=== PATIENT | male | born 1960 | race Caucasian/White ===

== ENCOUNTER 2017-10-09 11:22 | Inpatient (IN) | payer SELFPAY ==
[2017-10-09] MEDS ORDERED: Furosemide 40 MG/4 ML VIAL ONE (12:25)
[2017-10-09] MEDS ORDERED: Nitroglycerin 2% Ointment 1 INCH/1 GM Packet ONE (12:25)
[2017-10-09 13:11] LABS: CKMB 2.2 ng/mL (0-6.6); Troponin I 0.022 ng/mL (< 0.028)
--- NOTE | 2017-10-09 13:44 | RAD ---
SINGLE VIEW OF THE CHEST: History: CHF, shortness of breath. FINDINGS: Single view of the chest shows enlarged but stable cardiomediastinal silhouette. There is a small lef t pleural effusion. There is no evidence of consolidation or mass. Degenerative changes are seen in t he spine. IMPRESSION: Small left pleural effusion. POS: [facility]
[2017-10-09 16:08] LABS: Troponin I 0.034 ng/mL (< 0.028)
--- NOTE | 2017-10-09 17:34 | HP ---
PRIMARY CARE PHYSICIAN: None. The patient just moved here from [facility] about a month ago. REFERRING PHYSICIAN: In the Emergency Department is Dr. Mcneal. CHIEF COMPLAINT: SOB. HISTORY OF PRESENT ILLNESS: Mr. Calvin is a pleasant 57-year-old white male with history of diabetes type 1.5, probable hypertension and hyperlipidemia who around 2:00 this morning, became acutely short of breath and actually woke him up. He noted he has had increased shortness of breath when lying flat over the last day or two. Denies any chest pain, although he does describe a vague heaviness over the center of his chest. He presented to an outside Emergency Department at the [place] [facility] in [place]. Labs were done that showed a BNP of 1700 and no known history of CHF and subsequently transferred for further evaluation. He denies any fevers or chills. He has had some chronic cough, but nonproductive. He has had orthopnea, PND, but no lower extremity edema. He has had no diaphoresis, no palpitations. His bowel habits have been normal. No nausea or vomiting. On transfer here, he has been satting 97% on 2 liters. His vitals have been stable. We were called for further workup. No other current complaints. PAST MEDICAL HISTORY: 1. Diabetes mellitus type 1, diagnosed at age 44. He is insulin-dependent. 2. Per records in the ER, hypertension and hyperlipidemia, but the patient denies these. PAST SURGICAL HISTORY: 1. Right ankle incision and drainage for infection remotely. 2. Cholecystectomy remotely. 3. Tonsillectomy as a child. 4. Bilateral carpal tunnel release. 5. Right elbow with ulnar nerve transposition. 6. Left shoulder bone spur removal. HOME MEDICATIONS: 1. Humalog 6 units subcu t.i.d. with meals. 2. Lantus 20 units subcu at bedtime. ALLERGIES: NKDA. FAMILY HISTORY: Coronary artery disease. Both his parents had heart problems starting in their mid to late 30s. SOCIAL HISTORY: Significant for one-half plus pack per day of cigarettes for the last 37 years. He has smoked from the age of 12 on, but stopped for 8 years more recently after he was diagnosed with diabetes and eventually restarted. Denies any alcohol regularly. No IV drug use. 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 REVIEW OF SYSTEMS: Ten-point review of systems was performed, negative for all other systems except as stated as per HPI. PHYSICAL EXAMINATION: VITAL SIGNS: Temperature 98.5, pulse 86, blood pressure 159/88, respiratory 20 and O2 sat 97% on 2 liters. GENERAL: He is awake. He is alert. He is oriented x3. He is a well-developed , well-nourished white male, appears to be in no acute distress. HEENT: Normocephalic and atraumatic. Pupils are equal, round and reactive to light bilaterally. Mucous membranes are moist. He has no visible lesion, no thrush. NECK: Supple. There is no lymphadenopathy, no JVD, no thyromegaly. He has no carotid upstrokes. There are no bruits. He has good range of motion. LUNGS: Clear to auscultation anteriorly, posteriorly has some faint bibasilar crackles that do not clear with deep inspiration. He has a symmetrical chest excursion with good air movement. There are no wheezes, rales or rhonchi. CARDIOVASCULAR: Normal S1 and S2. No S3 or S4. There are no murmurs. He has PMI that is normal size and nondisplaced. ABDOMEN: Soft. It is nontender and nondistended. He has no hepatosplenomegaly. He has got no rebound, rigidity or guarding. There is normoactive bowel sounds present in all 4 quadrants. EXTREMITIES: No cyanosis, no clubbing, no edema. His extremities are cool. He has got 1+ dorsalis pedis and posterior tibial pulses bilaterally. Capillary refill is around 3 seconds. SKIN: Warm, moist and well perfused. He has no other rashes or lesions. MUSCULOSKELETAL: Normal to inspection. Previous surgical incisions are well healed. He has no joint inflammation. No palpable effusions. NEUROLOGIC: Cranial nerves II-XII are grossly intact. He has a normal speech pattern. He has 5/5 strength in all 4 of his extremities. There is no focal or neurologic deficits. LABORATORY AND IMAGING DATA: At the outside ER, sodium 142, potassium 4.0, chloride 114, bicarbonate low at 17, BUN 16, creatinine 1.00 and a glucose of 228. The calcium is 9.0. Liver functions are normal. Total bilirubin is 1.3. CBC showed a white count of 8.6, hemoglobin 14.0, hematocrit of 42.4, and platelet count is 230,000. There is normal differential to the white blood cell count. VBG showed a pH of 7.29, pCO2 of 42.6, pO2 of 48.7 and bicarb of 20. CK-MB was normal at 2.3, troponin I was normal at 0.022 and BNP was elevated at 1752.4. Her chest x-ray showed a volume overload and probable CHF. ASSESSMENT AND PLAN: 1. New onset congestive heart failure, unknown type. We will get a 2D echocardiogram to determine whether this is systolic or diastolic. I do not suspect valvular. In the meantime, we will get IV Lasix on board, continue the nitro paste, get serial cardiac biomarkers and a fasting lipid profile in the morning. 2. Diabetes mellitus type 1.5: We will get a morning hemoglobin A1c. He has normal sugars that are usually around 100. We will continue his current regimen while he is eating and add in a sliding scale Humalog low dose. 3. Hypertension: Blood pressure 159/88. May have an underlying hypertension, we will watch him overnight. He will be on nitro paste and beta-taylor in the meantime. 4. We will check a fasting lipid profile. 5. Gastroesophageal reflux disease: The patient will be on Prevacid b.i.d. 6. Deep venous thrombosis prophylaxis. We will start him on Lovenox tonight. BILL
[2017-10-09] MEDS ORDERED: HYDROcodone/Acetaminophen 5/325 mg Tablet PO PRN ×3 (18:05→19:15)
[2017-10-09] MEDS ORDERED: Ondansetron ODT 4 MG TAB SL PRN (18:05)
[2017-10-09] MEDS ORDERED: Ondansetron HCl/PF 4 MG/2 ML Vial IVP PRN (18:05)
[2017-10-09] MEDS ORDERED: Acetaminophen 325 MG TAB PO PRN (18:05)
[2017-10-09 18:59] LABS: Troponin I 0.031 ng/mL (< 0.028)
[2017-10-09] MEDS ORDERED: Dextrose 50% Abboject 50 ML SYRINGE SLOW IVP PRN (19:15)
[2017-10-09] MEDS ORDERED: HumaLOG 300 UNITS/3 ML VIAL SC PRN (19:15)
[2017-10-09] MEDS ORDERED: Dextrose 5% in Water 1,000 ML IV PRN (19:15)
[2017-10-09] MEDS ORDERED: Enoxaparin Sodium 40 MG/0.4 ML SYRINGE SC SCH (19:15)
[2017-10-09] MEDS ORDERED: HumaLOG 300 UNITS/3 ML VIAL SC SCH (19:30)
[2017-10-09 19:46] LABS: CKMB 2.2 ng/mL (0-6.6)
[2017-10-09] MEDS ORDERED: Furosemide 40 MG/4 ML VIAL SLOW IVP SCH (20:00)
[2017-10-09] MEDS ORDERED: Nitroglycerin 2% Ointment 1 INCH/1 GM Packet TOP SCH (21:00)
[2017-10-09] MEDS: Insulin Detemir 100 UNITS/ML 20 UNITS in Pre-Filled Syringe 1 EACH SC SCH (21:30)
[2017-10-10 03:31] LABS: #Basophils 0.1 thou/uL (0.0-0.2); #Eosinphils 0.3 thou/uL (0.0-0.7); #Lymphocytes 2.3 thou/uL (1.20-3.40); #Monocytes 0.9 thou/uL (0.11-0.59); #Neutrophils 4.3 thou/uL (1.40-6.50); %Basophils 0.7 % (0.0-1.0); %Eosinophils 4.3 % (0.0-10.0); %Lymphocytes 29.2 % (21.0-51.0); %Monocytes 11.3 % (0.0-10.0); %Neutrophils 54.5 % (42.0-75.0); Hemoglobin 13.2 g/dL (14.0-18.0); Mean Corpuscular HGB CONC 33.1 g/dL (32.0-36.0); Mean Corpuscular Volume 93.8 fl (80.0-94.0); Mean Platelet Volume 7.8 fL (7.4-10.4); Platelet Count 240 thou/uL (130-400); Red Blood Cell (RBC) Count 4.25 mill/uL (4.70-6.10)
[2017-10-10 03:39] LABS: Hemoglobin A1c 7.3 % (4.0-6.0)
[2017-10-10 03:51] LABS: Anion Gap 11 mmol/L (10-20); BUN (Urea Nitrogen) 21 mg/dL (8.4-25.7); Calc. Creatinine Clearance 0 mL/min (70-130); Calcium 9.2 mg/dL (7.8-10.44); Carbon Dioxide 28 mmol/L (22-29); Cardiac Risk 6.3 (Less than 4.5); Chloride 107 mmol/L (98-107); Cholesterol 151 mg/dl (< 200 Desired); Estimated GFR-MDRD 50; Glucose 159 mg/dL (70-105); HDL Cholesterol 24 mg/dL (>60 Neg Risk); LDL Cholesterol, Calculated 102 mg/dL; Magnesium 1.6 mg/dL (1.6-2.6); Potassium 3.4 mmol/L (3.5-5.1); Sodium 143 mmol/L (136-145); Triglycerides 125 mg/dL (Less than 150)
[2017-10-10 03:55] LABS: CKMB 1.6 ng/mL (0-6.6); Troponin I 0.032 ng/mL (< 0.028)
[2017-10-10] MEDS ORDERED: Furosemide 40 MG/4 ML VIAL SLOW IVP SCH (07:30)
[2017-10-10] MEDS ORDERED: Metoprolol Tartrate 25 MG TAB PO SCH (09:00)
[2017-10-10] MEDS ORDERED: Prevnar 13-Val Conj/PF 0.5 ML SYRINGE IM ONE (09:00)
[2017-10-10] MEDS: HumaLOG 300 UNITS/3 ML VIAL SC SCH ×3 (09:01→18:17)
[2017-10-10] MEDS: Lisinopril 5 MG TAB PO SCH (09:02)
[2017-10-10] MEDS: Enoxaparin Sodium 40 MG/0.4 ML SYRINGE SC SCH (09:03)
[2017-10-10 12:08] LABS: CKMB 1.6 ng/mL (0-6.6); Troponin I 0.033 ng/mL (< 0.028)
--- NOTE | 2017-10-10 14:49 | PDOC.PN ---
- Subjective Encounter Start Date: 10/10/17 Encounter Start Time: 09:10 Pt breathing muchbetter. No orthopnea, no PND. Good response to diuresis. Echo just completed, will follow up on results. trop to 0.03X and stable. CKMB neg. no chest pressure; Denies CP or SOB, no N/V/D/C, no f/c, no cough. 10 point ROS performed and neg for all systems except as above - Objective Resuscitation Status: Resuscitation Status FULL:Full Resuscitation MAR Reviewed: Yes Vital Signs & Weight: Vital Signs (12 hours) Temp Pulse Resp BP BP BP Pulse Ox 10/10/17 12:46 98.2 F 77 20 130/71 94 L 10/10/17 09:02 83 144/85 H 10/10/17 04:00 98.1 F 84 18 124/78 I&O: 10/09/17 10/10/17 10/11/17 06:59 06:59 06:59 Intake Total 240 Output Total 1590 Balance -1350 Result Diagrams: 10/10/17 03:24 10/10/17 03:24 Additional Labs: Accuchecks 10/10/17 10/09/17 05:48 20:38 POC Glucose 148 H 210 H Radiology Reviewed by me: Yes EKG Reviewed by me: Yes Phys Exam - Physical Examination Constitutional: NAD HEENT: PERRLA, moist MMs, sclera anicteric, oral pharynx no lesions Neck: no nodes, no JVD, supple, full ROM Respiratory: no wheezing, no rales, no rhonchi, clear to auscultation bilateral Cardiovascular: RRR, no significant murmur Gastrointestinal: soft, non-tender, no distention, positive bowel sounds Musculoskeletal: no edema, pulses present Neurological: non-focal, normal sensation, moves all 4 limbs Lymphatic: no nodes Psychiatric: normal affect, A&O x 3 Skin: no rash, normal turgor, cap refill <2 seconds Dx/Plan (1) Acute CHF (congestive heart failure) Code(s): I50.9 - HEART FAILURE, UNSPECIFIED Status: Acute Qualifiers: Congestive heart failure type: unspecified congestive heart failure type Qualified Code(s): I50.9 - Heart failure, unspecified Comment: new onset. Cards consult, diuretics. stop lasi xnow, Cr up to 1.49. BBlocker and ROSE added. Serial trops borderline. Follow up on echo (2) DM type 2 (diabetes mellitus, type 2) Status: Chronic Qualifiers: Diabetes mellitus complication status: without complication Diabetes mellitus correction insulin use: with rat exterminator use Qualified Code(s): E11.9 - Type 2 diabetes mellitus without complications; Z79.4 - rat exterminator (current) use of insulin; Z79.4 - rat exterminator (current) use of insulin; Z79.4 - rat exterminator ( current) use of insulin; Z79.4 - retirement (current) use of insulin (3) HTN (hypertension) Code(s): I10 - ESSENTIAL (PRIMARY) HYPERTENSION Status: Acute Qualifiers: Hypertension type: essential hypertension Qualified Code(s): I10 - Essential (primary) hypertension (4) Hypoxia Code(s): R09.02 - HYPOXEMIA Status: Acute - Plan cont current plan of care, respiratory therapy, out of bed/ambulate, DVT proph w /lovenox * .
--- NOTE | 2017-10-10 15:50 | CON ---
DATE OF CONSULTATION: 10/10/2017 REASON FOR CONSULTATION: Acute systolic heart failure. HISTORY OF PRESENT ILLNESS: Mr. Calvin is a very pleasant 57-year-old gentleman who recently presente d with acute onset shortness of breath. No previous history of underlying CAD or cardiomyopathy. He recently moved from [place]. No PND or orthopnea. He was seen and evaluated in the emergency room with elevated BNP. He received Lasix and has markedly improved. PAST MEDICAL HISTORY: Diabetes mellitus. PAST SURGICAL HISTORY: Ankle surgery, cholecystectomy, tonsillectomy, carpal tunnel release, left sh oulder surgery. HOME MEDICATIONS: Include Lantus and Humalog. ALLERGIES: None. FAMILY HISTORY: Positive for CAD. SOCIAL HISTORY: Smokes half pack per day. He recently lost his . REVIEW OF SYSTEMS: Ten-point review of systems is reviewed and as above, otherwise negative. PHYSICAL EXAMINATION: VITAL SIGNS: Blood pressure 130/71, pulse 77, temperature 98.2. GENERAL: Patient is a pleasant gentleman. The patient appears his stated age. NEUROLOGIC: The patient is alert and oriented times 3 with no focal neurologic deficits. HEENT: Sclerae without icterus. Mouth has moist mucous membranes with normal pallor. NECK: No JVD. Carotid upstroke brisk. No bruits bilaterally. LUNGS: Clear to auscultation with unlabored respirations. BACK: No scoliosis or kyphosis. CARDIAC: Regular rate and rhythm with normal S1 and S2. No S3 or S4 noted. No significant rubs, murmurs, thrills, or gallops noted throughout the precordium. PMI is not displaced. There is no parasternal heave. ABDOMEN: Soft, nontender, nondistended. No peritoneal signs present. No hepatosplenomegaly. No abnormal striae. EXTREMITIES: 2+ femoral and 2+ dorsalis pedis pulses. No cyanosis, clubbing, or edema. SKIN: No gross abnormalities. LABORATORY DATA: Hemoglobin 13.2, creatinine 1.46. BNP of 1752. Echo Doppler shows a markedly diminished LVEF. IMPRESSION: 1. Acute systolic heart failure. 2. Diabetes mellitus. 3. Tobacco abuse. RECOMMENDATIONS: Mr. Rosales' cardiomyopathy likely related to underlying coronary disease. He has a history of diabetes mellitus in addition to tobacco abuse. I discussed coronary angiography with mika livingston PCI with Mr. Bobby Calvin. The risks of the procedure include but are not limited to the fo llowing: , stroke, [place], need for emergency surgery, loss of limb, bleeding, and infection, as we ll as a reaction to the dye causing kidney failure and needing long-term dialysis. I also discussed the risks of PCI to include all of the above including coronary dissection and perforation in additio n to acute stent thrombosis and restenosis. All questions about the procedure were answered. Given the above, the patient agreed to proceed with coronary angiography and possible PCI. I also discussed drug-coated versus nondrug coated stent placement. There are no contraindications. His sister was present during the discussion. He states he cannot afford the medication for at leas t a year. No back injection or surgeries planned and no bleeding issues. We will add low dose beta taylor therapy. He is currently on lisinopril. Further recommendations pending the above.
[2017-10-10] MEDS: Carvedilol 3.125 MG TAB PO SCH (20:44)
[2017-10-10] MEDS: Insulin Detemir 100 UNITS/ML 20 UNITS in Pre-Filled Syringe 1 EACH SC SCH (20:45)
[2017-10-11] MEDS: Acetaminophen 325 MG TAB PO PRN (03:51)
[2017-10-11 05:55] LABS: #Basophils 0.1 thou/uL (0.0-0.2); #Eosinphils 0.4 thou/uL (0.0-0.7); #Lymphocytes 2.5 thou/uL (1.20-3.40); #Monocytes 0.9 thou/uL (0.11-0.59); %Basophils 0.8 % (0.0-1.0); %Lymphocytes 27.9 % (21.0-51.0); %Monocytes 10.3 % (0.0-10.0); Hemoglobin 13.5 g/dL (14.0-18.0); Mean Corpuscular HGB CONC 33.8 g/dL (32.0-36.0); Mean Corpuscular Hemoglobin 31.5 pg (27.0-31.0); Mean Corpuscular Volume 93.1 fl (80.0-94.0); Mean Platelet Volume 7.7 fL (7.4-10.4); Platelet Count 239 thou/uL (130-400); RBC Distribution Width 15.5 % (11.5-14.5); Red Blood Cell (RBC) Count 4.28 mill/uL (4.70-6.10); White Blood Cell (WBC) Count 8.8 thou/uL (4.8-10.8)
[2017-10-11 06:17] LABS: Anion Gap 11 mmol/L (10-20); BUN (Urea Nitrogen) 27 mg/dL (8.4-25.7); Calc. Creatinine Clearance 92 mL/min (70-130); Calcium 9.1 mg/dL (7.8-10.44); Carbon Dioxide 28 mmol/L (22-29); Chloride 106 mmol/L (98-107); Estimated GFR-MDRD 70; Glucose 125 mg/dL (70-105); Potassium 3.7 mmol/L (3.5-5.1); Sodium 141 mmol/L (136-145)
[2017-10-11] MEDS: Lisinopril 5 MG TAB PO SCH (09:42)
[2017-10-11] MEDS: Carvedilol 3.125 MG TAB PO SCH ×2 (09:42→21:24)
[2017-10-11] MEDS: Enoxaparin Sodium 40 MG/0.4 ML SYRINGE SC SCH (09:42)
[2017-10-11] MEDS: HumaLOG 300 UNITS/3 ML VIAL SC SCH ×3 (10:08→17:32)
[2017-10-11] MEDS ORDERED: Furosemide 40 MG TAB PO SCH (12:30)
--- NOTE | 2017-10-11 15:26 | PDOC.PN ---
- Subjective Encounter Start Date: 10/11/17 Encounter Start Time: 10:45 Pt feeling much improved, labs all normal. Seen bty cardiology, EF and echo results reviewed. Dr anguiano to take for PTCA on friday 10/13. No Chespt pain, no SOB, no ELLIS or orthopnea, no PND, no F/C, no cough, no N/V/D/ C 10 point ROS performed and neg for all systems except as above - Objective Resuscitation Status: Resuscitation Status FULL:Full Resuscitation MAR Reviewed: Yes Vital Signs & Weight: Vital Signs (12 hours) Temp Pulse Resp BP BP BP Pulse Ox 10/11/17 11:29 97.6 F 75 16 129/76 94 L 10/11/17 09:42 74 10/11/17 08:00 97.6 F 75 16 10/11/17 07:50 97.7 F 74 20 132/78 96 10/11/17 04:00 97.7 F 76 16 119/71 10/11/17 03:37 93 L Weight Weight 192 lb 9.6 oz I&O: 10/10/17 10/11/17 10/12/17 06:59 06:59 06:59 Intake Total 240 420 Output Total 1590 620 Balance -1350 -200 Result Diagrams: 10/11/17 05:35 10/11/17 05:35 Additional Labs: Accuchecks 10/11/17 10/11/17 10/10/17 11:31 05:47 20:31 POC Glucose 143 H 126 H 119 H 10/10/17 16:22 POC Glucose 253 H Radiology Reviewed by me: Yes EKG Reviewed by me: Yes Phys Exam - Physical Examination Constitutional: NAD HEENT: PERRLA, moist MMs, sclera anicteric, oral pharynx no lesions Neck: no nodes, no JVD, supple, full ROM Respiratory: no wheezing, no rales, no rhonchi, clear to auscultation bilateral Cardiovascular: RRR, no significant murmur, no rub Gastrointestinal: soft, non-tender, no distention, positive bowel sounds Musculoskeletal: no edema, pulses present Neurological: non-focal, normal sensation, moves all 4 limbs Lymphatic: no nodes Psychiatric: normal affect, A&O x 3 Skin: no rash, normal turgor, cap refill <2 seconds Dx/Plan (1) Acute CHF (congestive heart failure) Code(s): I50.9 - HEART FAILURE, UNSPECIFIED Status: Acute Qualifiers: Congestive heart failure type: systolic Qualified Code(s): I50.21 - Acute systolic (congestive) heart failure Comment: new onset. Cards consult, diuretics. Cr 1.0X, EF 25-30%, cardiology suspects ischemic cardiomyopathy given risk factors. Cath friday (2) DM type 2 (diabetes mellitus, type 2) Status: Chronic Qualifiers: Diabetes mellitus complication status: without complication Diabetes mellitus skilled nursing insulin use: with skilled nursing use Qualified Code(s): E11.9 - Type 2 diabetes mellitus without complications; Z79.4 - shelter (current) use of insulin; Z79.4 - shelter (current) use of insulin; Z79.4 - intermission coordinator ( current) use of insulin; Z79.4 - shelter (current) use of insulin (3) HTN (hypertension) Code(s): I10 - ESSENTIAL (PRIMARY) HYPERTENSION Status: Acute Qualifiers: Hypertension type: essential hypertension Qualified Code(s): I10 - Essential (primary) hypertension (4) Hypoxia Code(s): R09.02 - HYPOXEMIA Status: Resolved Comment: wean o2 as tolerated - Plan cont current plan of care, PT/OT, out of bed/ambulate, DVT proph w/lovenox * .
[2017-10-11] MEDS: Insulin Detemir 100 UNITS/ML 20 UNITS in Pre-Filled Syringe 1 EACH SC SCH (21:24)
[2017-10-11 22:38] VITALS: BMI 25.7
[2017-10-12 06:30] LABS: #Basophils 0.1 thou/uL (0.0-0.2); #Eosinphils 0.4 thou/uL (0.0-0.7); #Lymphocytes 2.3 thou/uL (1.20-3.40); #Monocytes 0.8 thou/uL (0.11-0.59); #Neutrophils 4.5 thou/uL (1.40-6.50); %Eosinophils 5.3 % (0.0-10.0); %Monocytes 10.3 % (0.0-10.0); %Neutrophils 55.4 % (42.0-75.0); Hemoglobin 13.9 g/dL (14.0-18.0); Mean Corpuscular Hemoglobin 30.8 pg (27.0-31.0); Mean Corpuscular Volume 93.4 fl (80.0-94.0); Mean Platelet Volume 7.9 fL (7.4-10.4); Platelet Count 259 thou/uL (130-400); RBC Distribution Width 15.6 % (11.5-14.5); White Blood Cell (WBC) Count 8.1 thou/uL (4.8-10.8)
[2017-10-12 06:49] LABS: Anion Gap 9 mmol/L (10-20); BUN (Urea Nitrogen) 25 mg/dL (8.4-25.7); Calc. Creatinine Clearance 98 mL/min (70-130); Calcium 9.2 mg/dL (7.8-10.44); Carbon Dioxide 28 mmol/L (22-29); Chloride 106 mmol/L (98-107); Estimated GFR-MDRD 76; Glucose 104 mg/dL (70-105); Magnesium 2.1 mg/dL (1.6-2.6); Potassium 3.5 mmol/L (3.5-5.1); Sodium 139 mmol/L (136-145)
[2017-10-12] MEDS: Carvedilol 3.125 MG TAB PO SCH ×2 (09:14→20:45)
[2017-10-12] MEDS: Lisinopril 5 MG TAB PO SCH (09:14)
[2017-10-12] MEDS: HumaLOG 300 UNITS/3 ML VIAL SC SCH ×3 (09:15→17:31)
[2017-10-12] MEDS: Enoxaparin Sodium 40 MG/0.4 ML SYRINGE SC SCH (09:15)
[2017-10-12] MEDS ORDERED: Communication Order-Pharmacy FS SCH (09:30)
[2017-10-12] MEDS ORDERED: Aspirin 325 MG TAB PO SCH (12:30)
--- NOTE | 2017-10-12 13:38 | PDOC.PN ---
- Subjective Encounter Start Date: 10/12/17 Encounter Start Time: 10:40 No new complaints other than hes hungry, no F/C, no N/V/D/c, no CP, no SOB, no ELLIS, no PND or othopnea awaiting cath 10/13 10 point ROS performed and neg for all systems except as above - Objective Resuscitation Status: Resuscitation Status FULL:Full Resuscitation MAR Reviewed: Yes Vital Signs & Weight: Vital Signs (12 hours) Temp Pulse Resp BP Pulse Ox 10/12/17 09:15 97.7 F 77 20 117/74 94 L 10/12/17 09:14 80 10/12/17 08:00 97.7 F 77 20 94 L 10/12/17 04:00 97.8 F 80 15 132/74 94 L Weight Weight 192 lb 3.2 oz I&O: 10/11/17 10/12/17 10/13/17 06:59 06:59 06:59 Intake Total 420 1920 Output Total 620 2251 Balance -200 -331 Result Diagrams: 10/12/17 05:48 10/12/17 05:48 Additional Labs: Accuchecks 10/12/17 10/12/17 10/11/17 11:02 05:58 19:59 POC Glucose 161 H 107 185 H 10/11/17 16:22 POC Glucose 125 H EKG Reviewed by me: Yes Phys Exam - Physical Examination Constitutional: NAD HEENT: PERRLA, moist MMs, sclera anicteric, oral pharynx no lesions Neck: no nodes, no JVD, supple, full ROM Respiratory: no wheezing, no rales, no rhonchi, clear to auscultation bilateral Cardiovascular: RRR, no significant murmur, no rub Gastrointestinal: soft, non-tender, no distention, positive bowel sounds Musculoskeletal: no edema, pulses present Neurological: non-focal, normal sensation, moves all 4 limbs Lymphatic: no nodes Psychiatric: normal affect, A&O x 3 Skin: no rash, normal turgor, cap refill <2 seconds Dx/Plan (1) Acute CHF (congestive heart failure) Code(s): I50.9 - HEART FAILURE, UNSPECIFIED Status: Acute Qualifiers: Congestive heart failure type: systolic Qualified Code(s): I50.21 - Acute systolic (congestive) heart failure Comment: new onset. Cards consult, diuretics. Cr 1.0X, EF 25-30%, cardiology suspects ischemic cardiomyopathy given risk factors. Cath friday (2) DM type 2 (diabetes mellitus, type 2) Status: Chronic Qualifiers: Diabetes mellitus complication status: without complication Diabetes mellitus alf insulin use: with alf use Qualified Code(s): E11.9 - Type 2 diabetes mellitus without complications; Z79.4 - assisted (current) use of insulin; Z79.4 - terminal computer operator (current) use of insulin; Z79.4 - terminal computer operator ( current) use of insulin; Z79.4 - assisted (current) use of insulin (3) HTN (hypertension) Code(s): I10 - ESSENTIAL (PRIMARY) HYPERTENSION Status: Acute Qualifiers: Hypertension type: essential hypertension Qualified Code(s): I10 - Essential (primary) hypertension (4) Hypoxia Code(s): R09.02 - HYPOXEMIA Status: Resolved Comment: wean o2 as tolerated - Plan * .
[2017-10-12] MEDS: Insulin Detemir 100 UNITS/ML 20 UNITS in Pre-Filled Syringe 1 EACH SC SCH (20:45)
[2017-10-12] MEDS: Atorvastatin Calcium 20 MG TAB PO SCH (20:45)
[2017-10-13] MEDS: Aspirin 325 MG TAB PO SCH (06:00)
[2017-10-13] MEDS: Lisinopril 5 MG TAB PO SCH (06:00)
[2017-10-13] MEDS: Carvedilol 3.125 MG TAB PO SCH ×2 (06:00→21:16)
[2017-10-13] MEDS: HumaLOG 300 UNITS/3 ML VIAL SC SCH ×3 (06:01→17:16)
[2017-10-13] MEDS ORDERED: Heparin 0 ML ONE (10:35)
[2017-10-13] MEDS ORDERED: Iopamidol 370 76% 100 ML VIAL ONE (11:51)
[2017-10-13] MEDS ORDERED: Nitroglycerin 100MG/250ML BOT 250 ML ONE (12:46)
[2017-10-13] MEDS ORDERED: Verapamil 5 MG/2 ML VIAL ONE (12:46)
[2017-10-13] MEDS ORDERED: Heparin 10,000 UNITS/1 ML VIAL ONE (12:56)
[2017-10-13] MEDS ORDERED: Fentanyl 100 MCG/2 ML VIAL ONE (12:56)
[2017-10-13] MEDS ORDERED: Midazolam HCl 2 mg/2 ml Vial ONE (12:56)
[2017-10-13] MEDS ORDERED: HumaLOG 300 UNITS/3 ML VIAL SC PRN (21:11)
--- NOTE | 2017-10-13 21:14 | PDOC.PN ---
- Subjective Encounter Start Date: 10/13/17 Encounter Start Time: 20:00 Patient seen and examined. No new complaints. No overnight events. s/p Cath - Objective Resuscitation Status: Resuscitation Status FULL:Full Resuscitation MAR Reviewed: Yes Vital Signs & Weight: Vital Signs (12 hours) Temp Pulse Resp BP Pulse Ox 10/13/17 16:00 98.1 F 83 17 120/63 98 10/13/17 11:57 97.6 F 77 16 118/73 96 Weight Weight 189 lb I&O: 10/12/17 10/13/17 10/14/17 06:59 06:59 06:59 Intake Total 1920 320 980 Output Total 2251 600 800 Balance -331 -280 180 Result Diagrams: 10/12/17 05:48 10/12/17 05:48 Additional Labs: Accuchecks 10/13/17 10/13/17 10/13/17 20:17 17:16 12:03 POC Glucose 177 H 201 H 112 H 10/13/17 10/12/17 06:01 16:51 POC Glucose 123 H 179 H EKG Reviewed by me: Yes (Tele SR) Phys Exam - Physical Examination Constitutional: NAD Respiratory: no wheezing, no rhonchi Cardiovascular: RRR, no rub Gastrointestinal: soft, non-tender, positive bowel sounds Musculoskeletal: no edema Neurological: moves all 4 limbs Dx/Plan - Plan DVT proph w/SCDs IMPRESSION: 1. Acute systolic heart failure due to ischemic cardiomyopathy 2. Elevated troponins due to demand ischemia/CAD 3. DM2 4. Tobacco abuse - counselled 5. Family history of heart disease/Chronic Anemia/JACKELIN on CKD 2 - improved/ Hypokalemia PLAN: * Cardio following * Cont current meds as below * HF education * Cont Levemir with sliding scale * DC 6 units AC * Cont ASA/Statins/Coreg and ACEI Review of Systems - Review of Systems Respiratory: negative: Cough, Dry, Shortness of Breath, Hemoptysis, SOB with Excertion, Pleuritic Pain, Sputum, Wheezing Cardiovascular: negative: chest pain, palpitations, orthopnea, paroxysmal nocturnal dyspnea, edema, light headedness - Medications/Allergies Allergies/Adverse Reactions: Allergies Allergy/AdvReac Type Severity Reaction Status Date / Time No Known Drug Allergies Allergy Verified 10/09/17 21:52 Medications: Current Medications Acetaminophen (Tylenol) 650 mg PO Q4H PRN PRN Reason: Headache/Fever or Pain Last Admin: 10/11/17 03:51 Dose: 650 mg Hydrocodone Bitart/Acetaminophen ([place] 10/325) 1 tab PO Q4H PRN PRN Reason: Severe Pain (7-10) Hydrocodone Bitart/Acetaminophen ([place] 5/325) 1 tab PO Q4H PRN PRN Reason: Moderate Pain (4-6) Aspirin (Aspirin) 325 mg PO DAILY [facility] Last Admin: 10/13/17 06:00 Dose: 325 mg Atorvastatin Calcium (Lipitor) 20 mg PO [facility] Last Admin: 10/12/17 20:45 Dose: 20 mg Carvedilol (Coreg) 3.125 mg PO BID [facility] Last Admin: 10/13/17 06:00 Dose: 3.125 mg Dextrose/Water (Dextrose 50%) 25 gm SLOW IVP PRN PRN PRN Reason: Hypoglycemia Glucagon (Glucagon) 1 mg IM PRN PRN PRN Reason: Hypoglycemia Dextrose/Water (D5w) 1,000 mls @ 0 mls/hr IV .Q0M PRN; As Directed PRN Reason: Hypoglycemia Insulin Detemir 20 units/ (Miscellaneous Medication) 0.2 mls @ 0 mls/hr SC [facility] Last Admin: 10/12/17 20:45 Dose: 0.2 mls Insulin Human Lispro (Humalog) 0 units SC .MILD SLIDING SCALE PRN PRN Reason: Mild Correctional Scale Insulin Human Lispro (Humalog) 0 units SC .BEDTIME SLIDING SC PRN PRN Reason: Bedtime Correctional Scale Lisinopril (Zestril) 5 mg PO DAILY [facility] Last Admin: 10/13/17 06:00 Dose: 5 mg Sodium Chloride (Flush - Normal Saline) 10 ml IVF Q12HR [facility] Last Admin: 10/13/17 09:29 Dose: 10 ml Sodium Chloride (Flush - Normal Saline) 10 ml IVF PRN PRN PRN Reason: Saline Flush
[2017-10-13] MEDS: Atorvastatin Calcium 20 MG TAB PO SCH (21:16)
[2017-10-13] MEDS: Insulin Detemir 100 UNITS/ML 20 UNITS in Pre-Filled Syringe 1 EACH SC SCH (21:16)
[2017-10-14 07:24] LABS: Hemoglobin 14.2 g/dL (14.0-18.0)
[2017-10-14 07:41] LABS: Albumin 4.2 g/dL (3.5-5.0); Anion Gap 10 mmol/L (10-20); BUN (Urea Nitrogen) 19 mg/dL (8.4-25.7); BUN/Creatinine Ratio 19.39; Calc. Creatinine Clearance 100 mL/min (70-130); Calcium 9.6 mg/dL (7.8-10.44); Carbon Dioxide 28 mmol/L (22-29); Chloride 105 mmol/L (98-107); Estimated GFR-MDRD 79; Glucose 119 mg/dL (70-105); Magnesium 2.2 mg/dL (1.6-2.6); Phosphorus 3.3 mg/dL (2.3-4.7); Potassium 4.3 mmol/L (3.5-5.1); Sodium 139 mmol/L (136-145)
[2017-10-14] MEDS: Aspirin 325 MG TAB PO SCH (09:38)
[2017-10-14] MEDS: Lisinopril 5 MG TAB PO SCH (09:38)
[2017-10-14] MEDS: Carvedilol 3.125 MG TAB PO SCH ×2 (09:38→21:01)
[2017-10-14] MEDS ORDERED: Communication Order-Pharmacy FS SCH (10:00)
[2017-10-14] MEDS ORDERED: Sodium Chloride 0.9% 1,000 ML IV SCH (10:00)
--- NOTE | 2017-10-14 10:11 | PRG ---
DATE OF SERVICE: 10/14/2017 Mr. Calvin is doing well. No chest pain or pressure noted. PHYSICAL EXAMINATION: VITAL SIGNS: Blood pressure 141/82, pulse 70, temperature 98.7. LUNGS: Clear to auscultation. CARDIAC: Regular rate and rhythm. ABDOMEN: Soft, nontender, nondistended. EXTREMITIES: No edema. LABS: Hemoglobin 12.4, creatinine 0.98. IMPRESSION: 1. Severe coronary artery disease. 2. Severe cardiomyopathy. RECOMMENDATIONS: Mr. Calvin has been turned down for bypass surgery by Dr. Li. He felt to b e too high risk. The LAD does not seem to be a good target given multiple lesions. At this point, w e will proceed with PCI of the circumflex artery and potentially the LAD. I discussed the procedure in full detail with Mr. Calvin. The risks included, but are not limited to the following: , str sh[place], [place], need for emergency surgery, loss of limb, bleeding, and infection, as well as a reaction to the dye causing kidney failure and needing long-term dialysis. I also discussed the risks of PCI to include all of the above including coronary dissection and perforation in addition to acute stent thr ombosis and restenosis. All questions about the procedure were answered. Given the above, the patie nt agreed to proceed with coronary angiography and possible PCI. I also discussed drug-coated versus nondrug coated stent placement. There are no contraindications a nd will proceed if needed. Further recommendations will be pending the above. I did state this woul d be incomplete revascularization given the right coronary artery would be very difficult to revascul arize.
[2017-10-14] MEDS ORDERED: Iopamidol 370 76% 100 ML VIAL ONE (12:27)
[2017-10-14] MEDS ORDERED: Iopamidol 370 76% 50 ML VIAL FS ONE (12:27)
[2017-10-14] MEDS ORDERED: Adenosine 6 MG/2 ML VIAL ONE (12:28)
[2017-10-14] MEDS ORDERED: Verapamil 5 MG/2 ML VIAL ONE (12:28)
[2017-10-14] MEDS ORDERED: Nitroglycerin 100MG/250ML BOT 250 ML ONE (12:28)
[2017-10-14] MEDS ORDERED: TICAGRELOR 90 MG TABLET ONE (12:36)
[2017-10-14] MEDS ORDERED: Heparin 10,000 UNITS/1 ML VIAL ONE (12:39)
[2017-10-14] MEDS ORDERED: Nitroglycerin 0.4 MG TAB 1 EACH SL PRN (13:23)
[2017-10-14] MEDS ORDERED: Morphine 5 MG/ML SYRINGE SLOW IVP PRN (13:23)
[2017-10-14] MEDS: HYDROcodone/Acetaminophen 10/325 mg Tablet PO PRN ×2 (16:55→21:02)
[2017-10-14] MEDS: Sodium Chloride 0.9% 1,000 ML IV SCH (16:57)
[2017-10-14] MEDS: Atorvastatin Calcium 20 MG TAB PO SCH (21:01)
[2017-10-14] MEDS: Insulin Detemir 100 UNITS/ML 20 UNITS in Pre-Filled Syringe 1 EACH SC SCH (21:02)
--- NOTE | 2017-10-14 21:02 | EKG ---
Test Reason : POST PTXA/STENTS X3 Blood Pressure : / mmHG Vent. Rate : 066 BPM Atrial Rate : 066 BPM P-R Int : 172 ms QRS Dur : 112 ms QT Int : 442 ms P-R-T Axes : 058 061 -76 degrees QTc Int : 463 ms Normal sinus rhythm Incomplete left bundle branch block Nonspecific T wave abnormality Inferolateral leads Prolonged QT Abnormal ECG No previous ECGs available Confirmed by SERGEY CASSIDY ([id number]) on 10/14/2017 9:02:00 PM Referred By: KRISTY Confirmed By:SERGEY CASSIDY
--- NOTE | 2017-10-14 22:38 | PDOC.PN ---
- Subjective Encounter Start Date: 10/14/17 Encounter Start Time: 11:30 Patient seen and examined. No new complaints. No overnight events - Objective Resuscitation Status: Resuscitation Status FULL:Full Resuscitation MAR Reviewed: Yes Vital Signs & Weight: Vital Signs (12 hours) Temp Pulse Resp BP BP Pulse Ox 10/14/17 16:40 97.7 F 93 17 132/89 98 10/14/17 11:40 97.8 F 75 20 132/81 96 Weight Weight 190 lb I&O: 10/13/17 10/14/17 10/15/17 06:59 06:59 06:59 Intake Total 320 1460 540 Output Total 600 1775 600 Balance -280 -315 -60 Result Diagrams: 10/14/17 07:10 10/14/17 07:10 Additional Labs: Accuchecks 10/14/17 10/14/17 10/14/17 20:51 17:00 05:55 POC Glucose 175 H 96 148 H EKG Reviewed by me: Yes (Tele SR) Phys Exam - Physical Examination Constitutional: NAD Respiratory: no wheezing, no rhonchi Cardiovascular: RRR, no rub Gastrointestinal: soft, non-tender, positive bowel sounds Musculoskeletal: no edema Dx/Plan - Plan DVT proph w/SCDs IMPRESSION: 1. Acute systolic heart failure due to ischemic cardiomyopathy 2. Elevated troponins due to demand ischemia/severe CAD 3. DM2 - on Levemir with sliding scale 4. Tobacco abuse - counselled 5. Family history of heart disease/Chronic Anemia/JACKELIN on CKD 2 - improved/ Hypokalemia PLAN: * Cath with stent placement today * Cardio following * Cont current meds as below * HF education * Cont Levemir with sliding scale * Cont ASA/Statins/Coreg and ACEI * DC planning Review of Systems - Review of Systems Respiratory: negative: Cough, Dry, Shortness of Breath, Hemoptysis, SOB with Excertion, Pleuritic Pain, Sputum, Wheezing Cardiovascular: negative: chest pain, palpitations, orthopnea, paroxysmal nocturnal dyspnea, edema, light headedness - Medications/Allergies Allergies/Adverse Reactions: Allergies Allergy/AdvReac Type Severity Reaction Status Date / Time No Known Drug Allergies Allergy Verified 10/09/17 21:52 Medications: Current Medications Acetaminophen (Tylenol) 650 mg PO Q4H PRN PRN Reason: Headache/Fever or Pain Last Admin: 10/11/17 03:51 Dose: 650 mg Hydrocodone Bitart/Acetaminophen ([place]os[place] 10/325) 1 tab PO Q4H PRN PRN Reason: Severe Pain (7-10) Last Admin: 10/14/17 21:02 Dose: 1 tab Hydrocodone Bitart/Acetaminophen ([place]osston 5/325) 1 tab PO Q4H PRN PRN Reason: Moderate Pain (4-6) Aspirin (Aspirin Chewable) 81 mg PO DAILY [facility] Atorvastatin Calcium (Lipitor) 20 mg PO [facility] Last Admin: 10/14/17 21:01 Dose: 20 mg Carvedilol (Coreg) 3.125 mg PO BID [facility] Last Admin: 10/14/17 21:01 Dose: 3.125 mg Clopidogrel Bisulfate (Plavix) 75 mg PO DAILY [facility] Dextrose/Water (Dextrose 50%) 25 gm SLOW IVP PRN PRN PRN Reason: Hypoglycemia Glucagon (Glucagon) 1 mg IM PRN PRN PRN Reason: Hypoglycemia Dextrose/Water (D5w) 1,000 mls @ 0 mls/hr IV .Q0M PRN; As Directed PRN Reason: Hypoglycemia Insulin Detemir 20 units/ (Miscellaneous Medication) 0.2 mls @ 0 mls/hr SC [facility] Last Admin: 10/14/17 21:02 Dose: 0.2 mls Sodium Chloride (Normal Saline 0.9%) 1,000 mls @ 100 mls/hr IV .Q10H [facility] Last Admin: 10/14/17 16:57 Dose: 1,000 mls Insulin Human Lispro (Humalog) 0 units SC .MILD SLIDING SCALE PRN PRN Reason: Mild Correctional Scale Insulin Human Lispro (Humalog) 0 units SC .BEDTIME SLIDING SC PRN PRN Reason: Bedtime Correctional Scale Lisinopril (Zestril) 5 mg PO DAILY [facility] Last Admin: 10/14/17 09:38 Dose: 5 mg Morphine Sulfate (Morphine) 2 mg SLOW IVP Q4H PRN PRN Reason: Moderate Pain (4-6) Nitroglycerin (Nitrostat) 0.4 mg SL Q5MIN PRN PRN Reason: Chest Pain Sodium Chloride (Flush - Normal Saline) 10 ml IVF Q12HR [facility] Last Admin: 10/14/17 21:01 Dose: 10 ml Sodium Chloride (Flush - Normal Saline) 10 ml IVF PRN PRN PRN Reason: Saline Flush
[2017-10-15] MEDS: Sodium Chloride 0.9% 1,000 ML IV SCH ×2 (02:06→02:33)
[2017-10-15 05:42] LABS: #Basophils 0.1 thou/uL (0.0-0.2); #Eosinphils 0.3 thou/uL (0.0-0.7); #Lymphocytes 1.7 thou/uL (1.20-3.40); #Monocytes 0.8 thou/uL (0.11-0.59); #Neutrophils 2.6 thou/uL (1.40-6.50); %Basophils 1.1 % (0.0-1.0); %Eosinophils 4.9 % (0.0-10.0); %Lymphocytes 31.3 % (21.0-51.0); %Monocytes 14.1 % (0.0-10.0); %Neutrophils 48.7 % (42.0-75.0); Hemoglobin 12.6 g/dL (14.0-18.0); Mean Corpuscular HGB CONC 33.1 g/dL (32.0-36.0); Mean Corpuscular Hemoglobin 30.9 pg (27.0-31.0); Mean Corpuscular Volume 93.4 fl (80.0-94.0); Mean Platelet Volume 8.1 fL (7.4-10.4); Platelet Count 199 thou/uL (130-400); RBC Distribution Width 14.9 % (11.5-14.5); Red Blood Cell (RBC) Count 4.07 mill/uL (4.70-6.10); White Blood Cell (WBC) Count 5.3 thou/uL (4.8-10.8)
[2017-10-15 05:59] LABS: ALT (SGPT) 16 U/L (8-55); AST (SGOT) 20 U/L (5-34); Albumin 3.6 g/dL (3.5-5.0); Alkaline Phosphatase 92 U/L (40-150); Anion Gap 11 mmol/L (10-20); BUN (Urea Nitrogen) 20 mg/dL (8.4-25.7); Bilirubin, Total 1.6 mg/dL (0.2-1.2); Calc. Creatinine Clearance 102 mL/min (70-130); Carbon Dioxide 24 mmol/L (22-29); Chloride 110 mmol/L (98-107); Estimated GFR-MDRD 80; Globulin 2.7 g/dL (2.4-3.5); Glucose 145 mg/dL (70-105); Protein, Total 6.3 g/dL (6.0-8.3); Sodium 141 mmol/L (136-145)
[2017-10-15] MEDS: Lisinopril 5 MG TAB PO SCH (08:05)
[2017-10-15] MEDS: Carvedilol 3.125 MG TAB PO SCH (08:06)
--- NOTE | 2017-10-15 08:44 | PRG ---
DATE OF SERVICE: 10/15/2017 Mr. Calvin is doing well. No chest pain or pressure noted. He recently underwent stent placement x2 to the left anterior descending and 1 to the circumflex artery. PHYSICAL EXAMINATION: VITAL SIGNS: Blood pressure 130/84, pulse 75, temperature 97.7. LUNGS: Clear to auscultation. HEART: Regular rate and rhythm. ABDOMEN: Soft, nontender, nondistended. EXTREMITIES: No edema. IMPRESSION: 1. Acute on chronic systolic heart failure. 2. Coronary artery disease. 3. Tobacco abuse. RECOMMENDATIONS: 1. He will be evaluated for a LifeVest today. 2. Continue ROSE inhibitor therapy and beta-taylor therapy. 3. [facility] on cessation of all tobacco products. 4. Once he is evaluated by LifeVest and decides whether it is in his best interest as I have describ ed, it would be okay from my standpoint to discharge home.
[2017-10-15] MEDS ORDERED: Clopidogrel Bisulfate 75 MG TAB PO SCH (09:00)
[2017-10-15 12:02] VITALS: TEMP 97.5
--- NOTE | 2017-10-15 14:34 | DIS ---
DATE OF ADMISSION: 10/09/2017 DATE OF DISCHARGE: 10/15/2017 DISCHARGE DIAGNOSES: 1. Ischemic cardiomyopathy. 2. Acute on chronic systolic congestive heart failure. 3. Coronary artery disease, status post percutaneous transluminal coronary angiography and PCI with stent placement x3. 4. Diabetes mellitus type 2. 5. Hypertension. CONSULTATION: Cardiology, Dr. Santosh Olivas. PROCEDURES: 1. Percutaneous transluminal coronary angiography on 10/13/2017. 2. Left heart catheterization with selective coronary angiography, but no intervention. 3. Percutaneous transluminal coronary angiography with stent placement x3. He had a 2.5 x 12 mm jessie nt to the mid circumflex x2 and a 2.5 x 16 mm across the distal LAD. 4. Echocardiogram on 10/10/2017 that showed EF of 25%-30%. Unable to assess diastolic dysfunction, moderate MR and mild TR. HISTORY AND PHYSICAL: Mr. Calvin is a 49-year-old gentleman who presented in the emergency department for CHF symptoms including lower extremity edema, orthopnea, and PND. BNP was elevated. The patient was admitted by or. HOSPITAL COURSE: The patient was seen and examined in the ER and placed in inpatient status on [facility]. He was given IV Lasix overnight with excellent response. Echocardiogram was ordered and Cardi ology was consulted. His cardiac biomarkers have been unremarkable. Echo showed an EF of 25%-30%, concerning for ischemic cardiomyopathy. Cardiology consulted and recom mended coronary angiography. The patient was watched over the weekend and coronary angiography was p erformed on 10/13/2017. He had a diffuse disease and Dr. Olivas consulted Dr. Li for con sideration of coronary artery bypass grafting. Dr. Li was felt that he was not a candidate due to diffuse disease and high risk and therefo re, the patient was taken back to the lab clerk on 10/15/2017 for PTCA and stent placement x3. He had 2 stents in the circumflex and one in LAD with good results. The patient was cleared for discharge home with outpatient followup. PHYSICAL EXAMINATION: The patient was seen and examined on the day of discharge. Discharge plan and disposition was discussed with the patient [id number] at the bedside. DISCHARGE MEDICATIONS: 1. Lantus 20 units subcu daily. 2. Humalog 6 units subcu a.c. 3. Lisinopril 5 mg daily. 4. Plavix 75 mg daily. 5. Carvedilol 3.125 mg p.o. b.i.d. 6. Atorvastatin 20 mg p.o. at bedtime. 7. Aspirin 81 mg daily. FOLLOWUP APPOINTMENTS: 1. Primary care physician is to establish within a week. 2. Dr. Olivas in 2-3 weeks. DISCHARGE CONDITION: Stable. DISPOSITION: Being discharged home via private vehicle. DISCHARGE ACTIVITY: Per cardiopulmonary limits. DISCHARGE DIET: Diabetic, heart healthy diet recommended. ACTIVITY: Limitations per Cardiology. The patient was seen and evaluated by the LifeVest wrap and is recommended to go home with a LifeVest . The patient got information and was going to speak with his sister about getting one setup if she could help to make the out of pocket expense.
[2017-10-15 15:13] VITALS: BP 121/65
[2017-10-15] MEDS: Acetaminophen 325 MG TAB PO PRN (15:31)
--- NOTE | 2017-10-15 21:14 | EKG ---
Test Reason : Blood Pressure : / mmHG Vent. Rate : 074 BPM Atrial Rate : 074 BPM P-R Int : 172 ms QRS Dur : 112 ms QT Int : 434 ms P-R-T Axes : 062 039 262 degrees QTc Int : 481 ms Normal sinus rhythm Incomplete left bundle branch block T wave abnormality, consider lateral ischemia Prolonged QT Abnormal ECG When compared with ECG of 14-OCT-2017 13:53, No significant change was found Confirmed by SERGEY CASSIDY ([id number]) on 10/15/2017 9:13:54 PM Referred By: KRISTY Confirmed By:SERGEY CASSIDY
== END 2017-10-15 17:35 | disposition home or self-care (01) | DRG 246 ==
LOC: ERS 11:22 → 2NO 16:24
PROVIDERS: ADMIT Internal Medicine Infectious Disease; ATTEND Internal Medicine Infectious Disease
PROC: 4A023N7 Measurement of Cardiac Sampling and Pressure, Left Heart, Percutaneous Approach (ICD-10-PCS; 2017-10-13)
PROC: B2111ZZ Fluoroscopy of Multiple Coronary Arteries using Low Osmolar Contrast (ICD-10-PCS; 2017-10-13)
PROC: B2151ZZ Fluoroscopy of Left Heart using Low Osmolar Contrast (ICD-10-PCS; 2017-10-13)
PROC: 027136Z Dilation of Coronary Artery, Two Arteries with Three Drug-eluting Intraluminal Devices, Percutaneous Approach (ICD-10-PCS; principal; 2017-10-14)
DX: I13.0 Hypertensive heart and chronic kidney disease with heart failure and stage 1 through stage 4 chronic kidney disease, or unspecified chronic kidney disease (principal); I50.23 Acute on chronic systolic (congestive) heart failure; N17.9 Acute kidney failure, unspecified; E11.22 Type 2 diabetes mellitus with diabetic chronic kidney disease; I24.8 Other forms of acute ischemic heart disease; E78.5 Hyperlipidemia, unspecified; D64.9 Anemia, unspecified; I25.5 Ischemic cardiomyopathy; I25.10 Atherosclerotic heart disease of native coronary artery without angina pectoris; F17.210 Nicotine dependence, cigarettes, uncomplicated; R09.02 Hypoxemia; E87.6 Hypokalemia; N18.2 Chronic kidney disease, stage 2 (mild); Z79.4 Long term (current) use of insulin
CPT/HCPCS: 36415; 36416; 71045; 76942; 80048; 80053; 80061; 80069; 82553; 83036; 83735; 83880; 84484; 85014; 85018; 85025; 85347; 90471; 90670; 92928; 92929; 93005; 93010; 93306; 93454; 93458; 93798; 96374; A4216; C1769; C1874; C1887; C9600; C9601; G0009; J0153; J1644; J1650; J1815; J1940; J2250; J2270; J3010

== ENCOUNTER 2017-10-20 10:27 | Emergency (ER) | payer OTHER, SELFPAY ==
[2017-10-20 11:19] LABS: #Basophils 0.1 thou/uL (0.0-0.2); #Eosinphils 0.3 thou/uL (0.0-0.7); #Lymphocytes 1.8 thou/uL (1.20-3.40); #Monocytes 0.6 thou/uL (0.11-0.59); #Neutrophils 5.1 thou/uL (1.40-6.50); %Basophils 0.8 % (0.0-1.0); %Lymphocytes 22.5 % (21.0-51.0); %Neutrophils 64.7 % (42.0-75.0); Hemoglobin 14.5 g/dL (14.0-18.0); Mean Corpuscular HGB CONC 33.2 g/dL (32.0-36.0); Mean Corpuscular Hemoglobin 30.7 pg (27.0-31.0); Mean Corpuscular Volume 92.5 fl (80.0-94.0); Mean Platelet Volume 8.1 fL (7.4-10.4); Platelet Count 243 thou/uL (130-400); RBC Distribution Width 14.5 % (11.5-14.5); Red Blood Cell (RBC) Count 4.74 mill/uL (4.70-6.10); White Blood Cell (WBC) Count 7.9 thou/uL (4.8-10.8)
--- NOTE | 2017-10-20 11:26 | RAD ---
PORTABLE CHEST 1 VIEW: Date: 10/20/17 Time: 1056 hours HISTORY: Dyspnea. FINDINGS: Comparison made with exam dated 10/09/17. The heart size is borderline. No focal areas of consolidation, pneumothoraces, kenney pulmonary edema, or pleural effusions are seen. There are degenerative changes in the spine. IMPRESSION: No acute process. POS: LISA
[2017-10-20 11:43] LABS: ALT (SGPT) 17 U/L (8-55); AST (SGOT) 16 U/L (5-34); Albumin 4.6 g/dL (3.5-5.0); Alkaline Phosphatase 116 U/L (40-150); Anion Gap 10 mmol/L (10-20); BUN (Urea Nitrogen) 22 mg/dL (8.4-25.7); Bilirubin, Total 1.7 mg/dL (0.2-1.2); Calc. Creatinine Clearance 0 mL/min (70-130); Calcium 9.6 mg/dL (7.8-10.44); Carbon Dioxide 24 mmol/L (22-29); Chloride 109 mmol/L (98-107); Estimated GFR-MDRD 69; Globulin 3.5 g/dL (2.4-3.5); Glucose 197 mg/dL (70-105); Potassium 4.1 mmol/L (3.5-5.1); Protein, Total 8.1 g/dL (6.0-8.3); Sodium 139 mmol/L (136-145)
[2017-10-20 11:45] LABS: CKMB 2.6 ng/mL (0-6.6)
[2017-10-20] MEDS ORDERED: Furosemide 40 MG/4 ML VIAL ONE (12:32)
--- NOTE | 2017-11-15 17:06 | EKG ---
Test Reason : Blood Pressure : / mmHG Vent. Rate : 086 BPM Atrial Rate : 086 BPM P-R Int : 166 ms QRS Dur : 112 ms QT Int : 432 ms P-R-T Axes : 065 037 213 degrees QTc Int : 516 ms Sinus rhythm with occasional Premature ventricular complexes Possible Left atrial enlargement Incomplete left bundle branch block Nonspecific T wave abnormality Abnormal ECG Confirmed by YOLANDA ALMEIDA ([id number]), newspaper copy editor LYNDA MASON ([id number]) on 11/15/2017 5:05:38 PM Referred By: Confirmed By:YOLANDA ALMEIDA
== END 2017-10-20 13:43 | disposition home or self-care (01) ==
LOC: ERS 10:27
DX: I11.0 Hypertensive heart disease with heart failure (principal); I50.9 Heart failure, unspecified; E10.9 Type 1 diabetes mellitus without complications; E78.5 Hyperlipidemia, unspecified; Z87.891 Personal history of nicotine dependence
CPT/HCPCS: 36415; 71045; 80053; 82553; 83880; 84484; 85025; 93005; 94640; 96374; J1940; J7620